=== PATIENT | male | born 1985 | race Caucasian/White ===

== ENCOUNTER 2017-04-18 16:08 | Emergency (ER) | END 2017-04-18 21:30 | disposition home or self-care (01) ==

== ENCOUNTER 2017-10-03 23:41 | Emergency (ER) | END 2017-10-04 02:23 | disposition home or self-care (01) ==

== ENCOUNTER 2018-07-27 18:29 | Emergency (ER) | payer MEDICAID ==
[~2018-07-27] VITALS: Ht 157.5 cm; Wt 77.8 kg
[~2018-07-27 18:29] MED LIST: ALBU18HF INHALATION; IBUP-1542 PO; INHA1SPA53 MC; MONT10TA21 PO
[2018-07-27 18:35] VITALS: Ht 157.5 cm; Wt 77.8 kg
[2018-07-27] MEDS ORDERED: ACET-141 PO (22:08)
[2018-07-27] MEDS ORDERED: IBUP-1542 PO (22:08)
[2018-07-27] MEDS ORDERED: D-ME118S24 PO (22:08)
--- NOTE | 2018-07-27 22:12 | ERD ---
ER Documentation Chief Complaint Chief Complaint sore throat x 4 days HPI 33-year-old male presents for sore throat, headache times 4 days. He states that he has mild cough. He denies any fevers. He also states he has right ear pain. The headache is noted to be diffuse, described as intermittent and sharp. He has been taking amoxicillin which she got from [place] for the past 2 days without relief. No other treatments tried. Denies chest pain or shortness of breath. He denies abdominal pain, nausea, vomiting. ROS All systems reviewed and are negative except as per history of present illness. Medications Home Meds Active Scripts D-Methorphan Hb/P-Epd HCl/Bpm (Huuwxrhwyl-Tpoaelgdmyv-Vv Syr) 118 Ml Syrup, 5 ML PO Q4H PRN for COUGH for 10 Days, #1 BOTTLE Prov:JARROD RICHTER DO 07/27/18 Acetaminophen* (Acetaminophen*) 500 MG Extra Strength Tablet, 500 MG PO Q4H PRN for PAIN AND OR ELEVATED TEMP, #30 TAB Prov:JARROD RICHTER DO 07/27/18 Ibuprofen* (Motrin*) 600 Mg Tab, 600 MG PO Q6H PRN for PAIN AND OR ELEVATED TEMP, #30 TAB Prov:JARROD RICHTER DO 07/27/18 Ibuprofen* (Motrin*) 600 Mg Tab, 600 MG PO Q6H PRN for PAIN AND OR ELEVATED TEMP, #30 TAB Prov:DAMIEN HARRIS NP 10/04/17 Inhaler, Assist Devices (E-Z SPACER) 1 Each Spacer, 1 EACH MC, #1 Prov:ROMIDEEOLINDA 04/18/17 Albuterol Sulfate* (Ventolin HFA*) 18 Gm Hfa.aer.ad, 2 PUFF INHALATION Q4H, #1 INHALER Prov:ROMI,OLINDA 04/18/17 Montelukast Sodium* (Singulair*) 10 Mg Tablet, 10 MG PO QHS, #30 TAB Prov:ROMI,OLINDA 04/18/17 Allergies Allergies: Coded Allergies: No Known Allergy (Unverified , 04/18/17) PMhx/Soc History of Surgery: Yes (nose, lipoma) Anesthesia Reaction: No Hx Neurological Disorder: No Hx Respiratory Disorders: No Hx Cardiac Disorders: No Hx Psychiatric Problems: No Hx Miscellaneous Medical Probl: No Hx Alcohol Use: No (former) Hx Substance Use: No Hx Tobacco Use: No Smoking Status: Never smoker Physical Exam Vitals Vital Signs Date Temp Pulse Resp B/P (MAP) Pulse Ox O2 O2 Flow FiO2 Time Delivery Rate 07/27/18 98.8 76 18 121/67 99 18:35 (85) Physical Exam Const: No acute distress Head: Atraumatic Eyes: Normal Conjunctiva ENT: Normal External Ears, bilateral tympanic membrane intact without erythema or bulging noted, nose and Mouth examination normal, there is mild tonsillar swelling bilaterally Neck: Full range of motion. No meningismus. Resp: Clear to auscultation bilaterally, no wheezing, rales, rhonchi Cardio: Regular rate and rhythm, no murmurs Skin: No petechiae or rashes Ext: No cyanosis, or edema Neur: Awake and alert Psych: Normal Mood and Affect Procedures/MDM Medical Decision Making: Differential diagnosis includes but not limited to upper respiratory infection, pneumonia, sepsis, meningitis, influenza. Patient appeared well on physical examination, nontoxic appearing. Lungs were clear to auscultation bilaterally. There is low suspicion for pneumonia, sepsis, meningitis. Patient likely has an upper respiratory infection, likely viral. Therefore antibiotics not indicated. Discussed symptomatic treatment with patient who agrees with plan. Patient given prescription for supportive medication(s). Patient advised to follow up with PCP in 1-2 days. Patient advised to return to ED for new or worsening symptoms. Patient stable on discharge from the ED. Disclaimer: Inadvertent spelling and grammatical errors are likely due to EHR/dictation software use and do not reflect on the overall quality of patient care. Also, please note that the electronic time recorded on this note does not necessarily reflect the actual time of the patient encounter. Departure Diagnosis: Primary Impression: URI (upper respiratory infection) URI type: unspecified URI Qualified Codes: J06.9 - Acute upper respiratory infection, unspecified Condition: Fair Patient Instructions: Preventing Common Respiratory Infections Additional Instructions: Llame al doctor MAANA y ian marcos ELVIA PARA DENTRO DE 1-2 SUMNER.Dgale a la secretaria que nosotros le instruimos hacer esta elvia.Avise o llame si pathak condicin se empeora antes de la elvia. Regresa aqui si peor o no mejor. JARROD RICHTER DO Jul 27, 2018 22:11
[2018-07-27 22:16] VITALS: BP 116/73; PULSE 64; RESP 18
== END 2018-07-27 22:17 | disposition home or self-care (01) ==
LOC: FTE 18:29
DX: J06.9 Acute upper respiratory infection, unspecified (principal)
CPT/HCPCS: 87880; 99283